=== PATIENT | female | born 1990 | race Caucasian/White ===

== ENCOUNTER 2016-10-22 22:10 | Emergency (ER) | payer SELFPAY ==
[~2016-10-22] VITALS: Ht 172.7 cm; Wt 90.4 kg
[~2016-10-22 22:10] MED LIST: ADVI200C9 PO; AMOX875 PO
[2016-10-22 22:41] VITALS: BP 130/76; PULSE 82; RESP 18; TEMP 98.6; O2SAT 98
[2016-10-22] MEDS ORDERED: LIDOCAINE HCL 1% 50 ML VIAL ONE (23:12)
--- NOTE | 2016-10-22 23:13 | PD ---
HPI Chief Complaint: Rubbish Collector Problem/Complaint Time Seen by Provider: 22:50 Travel History International Travel<30 days: No Contact w/Intl Traveler<30days: No Traveled to known affect area: No History of Present Illness HPI 26-year-old female complaining of pain swelling on the right labia area area. Patient states that the symptoms started several days ago. Patient denies any fever chills. Patient denies any dysuria or frequency. PFSH Past Medical History Medical History: Denies Significant Hx Diminished Hearing: No Tetanus Vaccination: < 5 Years Influenza Vaccination: No ?: Not LMP: 09/23/16 Past Surgical History Appendectomy: Yes Social History Alcohol Use: No Tobacco Use: Yes (1/2 a pack a day ) Substance Use: No Allergies-Medications (Allergen,Severity, Reaction): Coded Allergies: No Known Allergies (Unverified , 10/22/16) Review of Systems General / Constitutional: No: Fever Eyes: No: Visual changes HENT: No: Headaches Cardiovascular: No: Chest Pain or Discomfort Respiratory: No: Shortness of Breath Gastrointestinal: No: Abdominal Pain Genitourinary: No: Dysuria Musculoskeletal: No: Pain Skin: No Rash Neurologic: No: Weakness Psychiatric: No: Depression Endocrine: No: Polydipsia Hematologic/Lymphatic: No: Easy Bruising Physical Exam Narrative GENERAL: Well-nourished, well-developed patient. SKIN: Focused skin assessment warm/dry. HEAD: Normocephalic. EYES: No scleral icterus. No injection or drainage. NECK: Supple, trachea midline. No JVD or lymphadenopathy. CARDIOVASCULAR: Regular rate and rhythm without murmurs, gallops, or rubs. RESPIRATORY: Breath sounds equal bilaterally. No accessory muscle use. GASTROINTESTINAL: Abdomen soft, non-tender, nondistended. MUSCULOSKELETAL: No cyanosis, or edema. BACK: Nontender without obvious deformity. No CVA tenderness. Patient has an area redness swelling tenderness induration right labial area. No discharge. Data Data Last Documented VS Vital Signs Date Time Temp Pulse Resp B/P (MAP) Pulse Ox O2 Delivery O2 Flow Rate FiO2 10/22/16 23:08 (94) 10/22/16 22:41 98.6 82 18 98 Orders Orders Lidocai-Epi 1%-1:100,000 Inj (Xylocaine- (10/22/16 23:15) Acetamin-Hydrocod 325-5 Mg ([place] 5-325 (10/22/16 23:15) Ciprofloxacin (Cipro) (10/22/16 23:15) Wound Culture And Gram Stain (10/22/16 23:08) Lidocaine 1% Inj (50 Ml) (Xylocaine 1% I (10/22/16 23:15) Lidocaine 1% Inj (50 Ml) (Xylocaine 1% I (10/22/16 23:12) MDM Medical Decision Making Medical Screen Exam Complete: Yes Emergency Medical Condition: Yes Differential Diagnosis Differential diagnosis including cellulitis, abscess, infected Bartholin's cyst. Narrative Course 26-year-old female with redness swelling tenderness induration right labia. Procedures Procedure Narrative 1% lidocaine local anesthesia. Alcohol wipe. Small incision was made on the right labia with 11 scalpel. A moderate amount of pus recovered. Wound culture obtained. Dressing applied. Diagnosis Primary Impression: Abscess of right genital labia Patient Instructions: General Instructions Additional Instructions: Take medications as directed. Follow-up with personal physician. Return if worse. Med/Other Pt SpecificInfo: Prescription(s) given Scripts Hydrocodone-Acetaminophen ([place]) 5-325 mg Tab 1 TAB PO Q6H Y for PAIN, #20 TAB 0 Refills Prov: Nolan De La Rosa MD 10/22/16 Metronidazole (Flagyl) 500 Mg Tab 500 MG PO TID for Infection, #30 TAB 0 Refills Prov: Nolan De La Rosa MD 10/22/16 Ciprofloxacin (Cipro) 500 Mg Tab 500 MG PO BID for Infection, #20 TAB 0 Refills Prov: Nolan De La Rosa MD 10/22/16 Disposition: LEFT WITHOUT BEING SEEN Nolan De La Rosa MD Oct 22, 2016 23:13
[2016-10-22] MEDS ORDERED: LIDOCAINE HCL 1% 50 ML VIAL INFIL ONE (23:15)
[2016-10-22] MEDS ORDERED: ACETAMINOPHEN/HYDROcodone 325 MG/5 MG TAB PO ONE (23:15)
[2016-10-22] MEDS ORDERED: CIPROFLOXACIN 500 MG TAB PO ONE (23:15)
[2016-10-22] MEDS ORDERED: LIDOCAINE 1%/EPINEPHrine 1:100,000 SOLN 20 ML VIAL INFIL ONE (23:15)
[2016-10-22] MEDS ORDERED: CIPR-9 PO (23:24)
[2016-10-22] MEDS ORDERED: METR-1 PO (23:24)
[2016-10-22] MEDS ORDERED: NORC5TAB PO (23:24)
== END 2016-10-23 | disposition home or self-care (01) ==
LOC: PHED 22:10 → MERGE 22:10 → PHED 10-23
DX: N76.4 Abscess of vulva (principal); B95.2 Enterococcus as the cause of diseases classified elsewhere; F17.210 Nicotine dependence, cigarettes, uncomplicated; Z53.21 Procedure and treatment not carried out due to patient leaving prior to being seen by health care provider
CPT/HCPCS: 10060; 87070; 87077; 87186; 87205